=== PATIENT | male | born 1985 | race African-American/Black ===

== ENCOUNTER 2017-01-22 08:30 | Emergency (ER) | payer OTHER ==
[~2017-01-22] VITALS: Ht 175.3 cm; Wt 88.5 kg
[2017-01-22 08:34] VITALS: BP 131/85
--- NOTE | 2017-01-22 09:08 | RAD ---
Right foot, 3 views, 01/22/2017: History: Foot injury There is a minimal hallux valgus deformity. There is a small cortical avulsion fracture arising from the lateral aspect of the calcaneus near the calcaneocuboid articulation. This is probably a recent fracture. There is adjacent soft tissue swelling. No other fracture or dislocation is identified. IMPRESSION: Small cortical avulsion fracture arising from the lateral aspect of the calcaneus.
[2017-01-22] MEDS ORDERED: HYDR-971 PO (09:52)
--- NOTE | 2017-01-22 09:52 | PHYS DOC ---
Past Medical History Past Medical History: No Pertinent History Past Surgical History: Other Additional Past Surgical Histo: Frx repair with pin R great toe Alcohol Use: Occasionally Drug Use: None Adult General Chief Complaint Chief Complaint: FOOT INJURY PAIN HPI HPI Patient is a 31 year old male presents to the emergency department stating that he had picked up his mop bucket was walking up the steps when he missed the last stair. He states that he twisted his foot and is having pain on the tarsal bones. Peripheral pulses 2+ cap refill brisk less than 2 seconds. Patient able to move the toes without difficulty. He does have good sensation. He denies any further pain or discomfort he denies any back pain. He has not taken anything for pain or discomfort as well. He states he has been able to ambulate although he has increased pain and discomfort. Review of Systems Review of Systems Constitutional: Denies fever or chills [] Eyes: Denies change in visual acuity, redness, or eye pain [] HENT: Denies nasal congestion or sore throat [] Respiratory: Denies cough or shortness of breath [] Cardiovascular: No additional information not addressed in HPI [] GI: Denies abdominal pain, nausea, vomiting, bloody stools or diarrhea [] : Denies dysuria or hematuria [] Musculoskeletal: Denies back pain. Right foot pain Integument: Denies rash or skin lesions [] Neurologic: Denies headache, focal weakness or sensory changes [] Current Medications Current Medications Current Medications Medications (Trade) Dose Ordered Sig/Adwoa Start Time Stop Time Status Last Admin Dose Admin Ibuprofen (Motrin) 800 mg 1X ONCE 01/22/17 10:00 01/22/17 10:01 DC Allergies Allergies Allergies Coded Allergies Type Severity Reaction Last Updated Verified No Known Drug Allergies 01/22/17 No Physical Exam Physical Exam Constitutional: Well developed, well nourished, no acute distress, non-toxic appearance. [] HENT: Normocephalic, atraumatic, bilateral external ears normal, oropharynx moist, no oral exudates, nose normal. [] Eyes: PERRLA, EOMI, conjunctiva normal, no discharge. [] Neck: Normal range of motion, no tenderness, supple, no stridor. [] Cardiovascular:Heart rate regular rhythm Lungs & Thorax: No respiratory distress noted Skin: Warm, dry, no erythema, no rash. [] Back: No tenderness Extremities: Right talus tenderness, no cyanosis, no clubbing, ROM intact, no edema. Peripheral pulses 2+ cap refill brisk less than 2 seconds patient with good sensation noted to the toes. He is able to move the foot and ankle with no difficulty. Does not appear to be any bruising or discoloration along the sole metatarsal areas. No further tenderness noted throughout the heel. Neurologic: Alert and oriented X 3, normal motor function, normal sensory function, no focal deficits noted. [] Psychologic: Affect normal, judgement normal, mood normal. [] Current Patient Data Vital Signs Vital Signs Date Time Temp Pulse Resp B/P Pulse Ox O2 Delivery O2 Flow Rate FiO2 01/22/17 08:34 97.9 71 18 96 Room Air 97.9 EKG EKG [] Radiology/Procedures Radiology/Procedures [facility] [address] [place] [address] IMAGING REPORT Signed PATIENT: SELWYN DIAZ ACCOUNT: [id number] : 1985 LOCATION: ER AGE: 31 SEX: M EXAM STATUS: PRE ER ORD. PHYSICIAN: ROGER COELHO APRN REASON: foot pain after falling off one step PROCEDURE: FOOT RIGHT 3V Right foot, 3 views, 01/22/2017: History: Foot injury There is a minimal hallux valgus deformity. There is a small cortical avulsion fracture arising from the lateral aspect of the calcaneus near the calcaneocuboid articulation. This is probably a recent fracture. There is adjacent soft tissue swelling. No other fracture or dislocation is identified. IMPRESSION: Small cortical avulsion fracture arising from the lateral aspect of the calcaneus. DICTATED and SIGNED BY: KENROY SHARPE MD DATE: 01/22/17 0903 CC: ROGER COELHO APRN ~ [] Course & Med Decision Making Course & Med Decision Making Pertinent Labs and Imaging studies reviewed. (See chart for details) X-ray noted a healed fracture on the right. Patient will be placed in a posterior short leg splint with crutches. Patient will discharged home with recommendations to follow-up with orthopedic in the next week. Ice packs on 20 minutes off 20 minutes several times a day elevation as much as possible. Patient will be recommended to keep the splint in place until he follows up with orthopedic he'll be placed on crutches with no weightbearing. Recommended ibuprofen 800 mg every 8 hours with food stop taking few develop an upset stomach. Patient will also be provided with a few hydrocodone's for severe pain and discomfort. Signs symptoms to return back to emergency department been provided. Patient agrees with discharge instructions treatment regimens and follow-up recommendations. [] Dragon Disclaimer Dragon Disclaimer This electronic medical record was generated, in whole or in part, using a voice recognition dictation system. Departure Departure Impression: Primary Impression: Fracture of right calcaneus Disposition: HOME, SELF-CARE Condition: STABLE Referrals: SACHIN SINGH MD Patient Instructions: Calcaneal Fracture Additional Instructions: Home to rest Ibuprofen 800 mg every 8 hours with food. Stop taking if you develop upset stomach [place] for severe pain. This medication will cause drowsiness do not take if you need to be alert and oriented Ice packs on 20 minutes and off 20 minutes several times a day Elevation as much as possible Keep the splint in place until you follow-up with orthopedic. Use the crutches for ambulation. No weightbearing on the right foot. Follow-up with orthopedic in the next week. Return back to emergency department sign symptoms of become worse. Scripts Hydrocodone/Apap 5-325 ([place] 5-325 Tablet)1 Each Tablet1 Tab PO PRN Q6HRS PRN PAIN #12 TAB Prov:ROGER COELHO APRN 01/22/17 ROGER COELHO APRN Jan 22, 2017 09:52
[2017-01-22] MEDS ORDERED: IBUPROFEN 800 MG TABLET. PO ONE (10:00)
== END 2017-01-22 10:30 | disposition home or self-care (01) ==
LOC: ER 08:30
DX: S92.001A Unspecified fracture of right calcaneus, initial encounter for closed fracture (principal); X50.1XXA Overexertion from prolonged static or awkward postures, initial encounter; Y93.E5 Activity, floor mopping and cleaning; Y92.89 Other specified places as the place of occurrence of the external cause; Y99.8 Other external cause status
CPT/HCPCS: 29515; 73630; 99284-25

== ENCOUNTER → 2020-09-08 | Outpatient (CLI) | payer BC ==
[~2020-09-08] MED LIST: HYDR-3164 PO
--- NOTE | 2020-09-10 10:49 | NUR ---
IP: Tried to contact Dr. Morales concerning pt's positive COVID test. Pager # is no longer in use. Called the office # and got another number to call [phone]. Left a voicemail to return call.
--- NOTE | 2020-09-10 11:07 | NUR ---
IP: No return call so contact Selina Mcgarry Director of Operative Services for Dr. Morales's contact number. I was able to reach Dr. Morales and informed him of pt's positive COVID test. He requested I call the pt. I did inform pt of positive COVID test and need to quarantine for 14 days and surgery procedure is cancelled for tomorrow. Dr Morales will follow up with him tomorrow. Pt verbalized understanding.
== END ==
LOC: LAB 12:21
PROVIDERS: ATTEND Specialist
DX: Z01.812 Encounter for preprocedural laboratory examination (principal); U07.1 COVID-19
CPT/HCPCS: U0003